=== PATIENT | male | born 1985 | race African-American/Black ===

== ENCOUNTER 2018-10-18 21:00 | Emergency (ER) | payer SELFPAY ==
[2018-10-18 21:07] VITALS: BMI 33.3
[2018-10-18] MEDS ORDERED: SODIUM CHLORIDE 0.9% 500 ML INFUS.BAG IV ONE (21:07)
[2018-10-18] MEDS ORDERED: ONDANSETRON 4 MG/2 ML VIAL IVPUSH ONE (21:07)
--- NOTE | 2018-10-18 21:07 | PDOC ---
Rapid Medical Evaluation Chief Complaint: Alcohol intoxication Time Seen by Provider: 10/18/18 21:05 Medical Evaluation: 10/18/18 21:05 I have performed a brief in-person evaluation of the patient. The patient presents with a chief complaint of: vomiting and abdominal pain with diarrhea since this am. Patient reports drinking a lot of different mixture of alcohol last night Pertinent physical exam findings. NAD even and unlabored breathing +generalize abdominal tenderness I have ordered the following. iv access, ns The patient will proceed to the ED for further evaluation.
[2018-10-18] MEDS ORDERED: ONDANSETRON 4 MG/2 ML VIAL ONE (21:57)
[2018-10-18 22:10] LABS: BASO % 0.5 % (0-2.0); EOS % 0.1 % (0-4.5); HEMATOCRIT 50.4 % (35.4-49); HEMOGLOBIN 17.8 GM/dL (11.7-16.9); LYMPH % 5.5 % (8-40); MCHC 35.3 g/dl (32.0-35.9); MEAN CELL VOLUME 87.7 fl (80-96); MEAN PLT VOLUME 7.9 fl (7.5-11.1); MONO % 4.8 % (3.8-10.2); NEUT % 89.1 % (42.8-82.8); PLATELET COUNT 324 K/MM3 (134-434); RBC 5.75 M/mm3 (4.00-5.60); RDW 13.5 % (11.9-15.9); WHITE BLOOD COUNT 13.6 K/mm3 (4.0-10.0)
[2018-10-18 22:33] LABS: ALK PHOS 88 U/L (45-117); ANION GAP 13 MMOL/L (8-16); BLOOD UREA NITROGEN 19 mg/dL (7-18); CALCIUM 10.3 mg/dL (8.5-10.1); CHLORIDE 104 mmol/L (98-107); CO2 22 mmol/L (21-32); CREATININE 1.6 mg/dL (0.55-1.3); GLUCOSE,RANDOM 143 mg/dL (74-106); LIPASE 113 U/L (73-393); POTASSIUM 4.1 mmol/L (3.5-5.1); SGOT/AST 28 U/L (15-37); SGPT/ALT 52 U/L (13-61); SODIUM 139 mmol/L (136-145); TOT PROT 8.8 g/dl (6.4-8.2)
[2018-10-18] MEDS ORDERED: SODIUM CHLORIDE 1,000 ML IV STA (22:59)
[2018-10-18 23:14] VITALS: BP 124/82; PULSE 94; TEMP 98.4
[2018-10-18] MEDS ORDERED: METOCLOPRAMIDE HCL INJECTION 10 MG/2 ML VIAL ONE (23:26)
[2018-10-18] MEDS ORDERED: METOCLOPRAMIDE HCL INJECTION 10 MG/2 ML VIAL IVPB ONE (23:32)
--- NOTE | 2018-10-19 00:09 | PDOC ---
History of Present Illness - General Chief Complaint: Alcohol intoxication Stated Complaint: hungover Time Seen by Provider: 10/18/18 21:05 History Source: Patient - History of Present Illness Initial Comments: 10/18/18 2200 33 year old male c/o vomiting since 8 am after heavily drinking alcohol the night before. denies fever/ chills. reports generalized abdominal discomfort. Past History - Past Medical History Allergies/Adverse Reactions: Allergies Allergy/AdvReac Type Severity Reaction Status Date / Time No Known Allergies Allergy Verified 10/18/18 21:07 COPD: No - Suicide/Smoking/Psychosocial Hx Smoking History: Never smoked Have you smoked in the past 12 months: No Information on smoking cessation initiated: No Hx Alcohol Use: No Drug/Substance Use Hx: No Review of Systems - Review of Systems Able to Perform ROS?: Yes Is the patient limited Citizen [place] proficient: No Constitutional: No: Symptoms Reported, See HPI, Chills, Diaphoresis, Fever, Loss of Appetite, Malaise, Night Sweats, Weakness, Weight Stable, Unintentional Wgt. Loss, Unexplained wgt Loss, Other ABD/GI: Yes: Nausea, Vomiting. No: Abdominal cramping : No: Symptoms Reported, See HPI, Burning, Dysuria, Discharge, Frequency, Flank Pain, Hematuria, Incontinence, Pain, Urgency, Testicular Mass, Testicular Swelling, Lesions, Testicular Pain, Other Musculoskeletal: No: Symptoms Reported, See HPI, Back Pain, Gout, Joint Pain, Joint Swelling, Muscle Pain, Muscle Weakness, Neck Pain, Joint Stiffness, Other *Physical Exam - Vital Signs Last Vital Signs Temp Pulse Resp BP Pulse Ox 98.4 F 94 H 18 124/82 100 10/18/18 21:05 10/18/18 21:05 10/18/18 21:05 10/18/18 21:05 10/18/18 21:05 - Physical Exam General Appearance: Yes: Appropriately Dressed Gastrointestinal/Abdominal: positive: Soft, Increased Bowel Sounds. negative: Tender Musculoskeletal: positive: Normal Inspection Extremity: positive: Normal Capillary Refill, Normal Inspection, Other (dry lips ) Integumentary: positive: Dry, Warm, Pale Neurologic: positive: Fully Oriented, Alert Moderate Sedation - Procedure Monitoring Vital Signs: Procedure Monitoring Vital Signs Temperature 98.4 F 10/18/18 21:05 Pulse Rate 94 H 10/18/18 21:05 Respiratory Rate 18 10/18/18 21:05 Blood Pressure 124/82 10/18/18 21:05 O2 Sat by Pulse Oximetry (%) 100 10/18/18 21:05 ED Treatment Course - LABORATORY CBC & Chemistry Diagram: 10/19/18 00:26 10/19/18 00:26 - ADDITIONAL ORDERS Additional order review: Laboratory Results 10/18/18 21:50 Sodium 139 Potassium 4.1 Chloride 104 Carbon Dioxide 22 Anion Gap 13 BUN 19 H Creatinine 1.6 H Creat Clearance w eGFR 50.67 Random Glucose 143 H Calcium 10.3 H Total Bilirubin 1.0 AST 28 ALT 52 Alkaline Phosphatase 88 Total Protein 8.8 H Albumin 5.0 Lipase 113 Alcohol, Quantitative < 3.0 10/18/18 21:50 RBC 5.75 H MCV 87.7 MCHC 35.3 RDW 13.5 MPV 7.9 Neutrophils % 89.1 H Lymphocytes % 5.5 L Monocytes % 4.8 Eosinophils % 0.1 Basophils % 0.5 - Medications Given in the ED: ED Medications Discontinued Medications Generic Name Dose Route Start Last Admin Trade Name Coleman PRN Reason Stop Dose Admin Ondansetron HCl 4 mg 10/18/18 21:07 10/18/18 21:10 Zofran Injection IVPUSH 10/18/18 21:08 4 mg ONCE ONE Administration Sodium Chloride 1,000 ml 10/18/18 21:07 10/18/18 21:10 Normal Saline - IV 10/18/18 21:08 1,000 ml ONCE ONE Administration Medical Decision Making - Medical Decision Making 10/19/18 00:22 patient now tolerating PO water. drank 2 pitcher of water in the ED. no vomiting. will reevaluate labs . 10/19/18 01:15 labs improved. patient feels better will d/c home *DC/Admit/Observation/Transfer Diagnosis at time of Disposition: Nausea & vomiting Qualifiers: Vomiting type: unspecified Vomiting Intractability: intractable Qualified Code( s): R11.2 - Nausea with vomiting, unspecified - Referrals - Patient Instructions Printed Discharge Instructions: DI for Alcohol Abuse Additional Instructions: drink plenty of fluids. Additional Instructions: * Please call your personal physician to report your Emergency Department visit and to report your progress, if any. * If there is no improvement in symptoms in 2 days call your physician. * Return to the Emergency Department for any worsening symptoms. - Post Discharge Activity Forms/Work/School Notes: Back to Work
[2018-10-19 00:29] LABS: URINE APPEARANCE SLCLOUDY; URINE BILIRUBIN NEGATIVE (<2.0 mg/dL); URINE COLOR YELLOW; URINE GLUCOSE (UA) NEGATIVE (NEGATIVE); URINE KETONE NEGATIVE (NEGATIVE); URINE LEUK ESTERASE NEGATIVE (NEGATIVE); URINE NITRITE NEGATIVE (NEGATIVE); URINE PROTEIN 1+ (NEGATIVE); URINE UROBILINOGEN NEGATIVE mg/dL (0.2-1.0)
[2018-10-19 00:40] LABS: EPI CELLS RARE /HPF (FEW); URINE HYALINE CAST 17 /lpf; URINE MUCUS MANY
[2018-10-19 00:44] LABS: BASO % 0.5 % (0-2.0); EOS % 0.1 % (0-4.5); HEMATOCRIT 46.5 % (35.4-49); HEMOGLOBIN 16.2 GM/dL (11.7-16.9); LYMPH % 8.9 % (8-40); MCH 30.8 pg (25.7-33.7); MCHC 34.8 g/dl (32.0-35.9); MEAN CELL VOLUME 88.5 fl (80-96); MEAN PLT VOLUME 7.9 fl (7.5-11.1); MONO % 5.8 % (3.8-10.2); NEUT % 84.7 % (42.8-82.8); PLATELET COUNT 302 K/MM3 (134-434); RBC 5.25 M/mm3 (4.00-5.60); RDW 13.5 % (11.9-15.9); WHITE BLOOD COUNT 12.5 K/mm3 (4.0-10.0)
[2018-10-19 01:02] LABS: ALBUMIN 4.5 g/dl (3.4-5.0); ALK PHOS 82 U/L (45-117); ANION GAP 7 MMOL/L (8-16); BILIRUBIN,TOTAL 0.9 mg/dL (0.2-1); BLOOD UREA NITROGEN 18 mg/dL (7-18); CALCIUM 8.6 mg/dL (8.5-10.1); CHLORIDE 105 mmol/L (98-107); CO2 27 mmol/L (21-32); CREATININE 1.3 mg/dL (0.55-1.3); GLUCOSE,RANDOM 105 mg/dL (74-106); POTASSIUM 3.9 mmol/L (3.5-5.1); SGOT/AST 24 U/L (15-37); SGPT/ALT 49 U/L (13-61); SODIUM 139 mmol/L (136-145); TOT PROT 7.9 g/dl (6.4-8.2)
--- NOTE | 2018-10-19 01:30 | PDOC ---
*Physical Exam - Vital Signs Last Vital Signs Temp Pulse Resp BP Pulse Ox 98.4 F 94 H 18 124/82 100 10/18/18 21:05 10/18/18 21:05 10/18/18 21:05 10/18/18 21:05 10/18/18 21:05 ED Treatment Course - LABORATORY CBC & Chemistry Diagram: 10/19/18 00:26 10/19/18 00:26 - ADDITIONAL ORDERS Additional order review: Laboratory Results 10/19/18 10/19/18 10/18/18 00:26 00:18 21:50 Sodium 139 139 Potassium 3.9 4.1 Chloride 105 104 Carbon Dioxide 27 22 Anion Gap 7 L 13 BUN 18 19 H Creatinine 1.3 1.6 H Creat Clearance w eGFR > 60 50.67 Random Glucose 105 143 H Calcium 8.6 10.3 H Total Bilirubin 0.9 1.0 AST 24 28 ALT 49 52 Alkaline Phosphatase 82 88 Total Protein 7.9 8.8 H Albumin 4.5 5.0 Lipase 113 Urine Color Yellow Urine Appearance Slcloudy Urine pH 5.0 Ur Specific [place] 1.025 Urine Protein 1+ H Urine Glucose (UA) Negative Urine Ketones Negative Urine Blood Negative Urine Nitrite Negative Urine Bilirubin Negative Urine Urobilinogen Negative Ur Leukocyte Esterase Negative Urine WBC (Auto) 1 Urine RBC (Auto) <1 Ur Epithelial Cells Rare Hyaline Casts 17 Urine Mucus Many Alcohol, Quantitative < 3.0 10/19/18 10/18/18 00:26 21:50 RBC 5.25 5.75 H MCV 88.5 87.7 MCHC 34.8 35.3 RDW 13.5 13.5 MPV 7.9 7.9 Neutrophils % 84.7 H 89.1 H Lymphocytes % 8.9 D 5.5 L Monocytes % 5.8 4.8 Eosinophils % 0.1 0.1 Basophils % 0.5 0.5 - Medications Given in the ED: ED Medications Discontinued Medications Generic Name Dose Route Start Last Admin Trade Name Freq PRN Reason Stop Dose Admin Sodium Chloride 1,000 mls @ 1,000 mls/hr 10/18/18 22:59 10/18/18 23:00 Normal Saline - IV 10/18/18 23:58 1,000 mls/hr ASDIR STA Administration Metoclopramide HCl 10 mg 10/18/18 23:32 10/18/18 23:35 Reglan Injection - IVPB 10/18/18 23:33 10 mg ONCE ONE Administration Ondansetron HCl 4 mg 10/18/18 21:07 10/18/18 21:10 Zofran Injection IVPUSH 10/18/18 21:08 4 mg ONCE ONE Administration Sodium Chloride 1,000 ml 10/18/18 21:07 10/18/18 21:10 Normal Saline - IV 10/18/18 21:08 1,000 ml ONCE ONE Administration Medical Decision Making - Medical Decision Making 10/19/18 01:29 I have examined this patient,reviewed the labs and discussed the case with the [employer]ER TESTER Clementina Sebastian . *DC/Admit/Observation/Transfer Diagnosis at time of Disposition: Nausea & vomiting Qualifiers: Vomiting type: unspecified Vomiting Intractability: intractable Qualified Code( s): R11.2 - Nausea with vomiting, unspecified - Referrals - Patient Instructions Printed Discharge Instructions: DI for Alcohol Abuse Additional Instructions: drink plenty of fluids. Additional Instructions: * Please call your personal physician to report your Emergency Department visit and to report your progress, if any. * If there is no improvement in symptoms in 2 days call your physician. * Return to the Emergency Department for any worsening symptoms. - Post Discharge Activity Forms/Work/School Notes: Back to Work
== END 2018-10-19 01:30 | disposition home or self-care (01) ==
LOC: JER 21:00
PROC: 3E0337Z Introduction of Electrolytic and Water Balance Substance into Peripheral Vein, Percutaneous Approach (ICD-10-PCS; principal; 2018-10-18)
PROC: 3E033GC Introduction of Other Therapeutic Substance into Peripheral Vein, Percutaneous Approach (ICD-10-PCS; 2018-10-18)
PROC: 3E033GC Introduction of Other Therapeutic Substance into Peripheral Vein, Percutaneous Approach (ICD-10-PCS; 2018-10-18)
DX: R11.2 Nausea with vomiting, unspecified (principal); F10.10 Alcohol abuse, uncomplicated
CPT/HCPCS: 36415; 80053; 80307; 81003; 81015; 83690; 85025; 99283-25; J7030